=== PATIENT | male | born 1970 | race Caucasian/White ===

== ENCOUNTER 2020-09-22 01:44 | Emergency (ER) | payer OTHER ==
[~2020-09-22] VITALS: Ht 175.3 cm; Wt 85.7 kg
[2020-09-22 02:00] VITALS: BP_SYST 128
[2020-09-22] MEDS ORDERED: SULF5DRO EACH EYE (02:13)
[2020-09-22 02:18] VITALS: BP_SYST 128
== END 2020-09-22 02:18 | disposition home or self-care (01) ==
LOC: SED 01:44
DX: S05.02XA Injury of conjunctiva and corneal abrasion without foreign body, left eye, initial encounter (principal); Z79.899 Other long term (current) drug therapy; W22.8XXA Striking against or struck by other objects, initial encounter; Y93.89 Activity, other specified; Y92.89 Other specified places as the place of occurrence of the external cause; Y99.8 Other external cause status
CPT/HCPCS: 99283